=== PATIENT | male | born 1955 | race Caucasian/White ===

== ENCOUNTER 2024-10-18 07:27 | Emergency (ER) | payer MEDICARE, SELFPAY ==
[2024-10-18 07:37] VITALS: BP 182/111; PULSE 77; RESP 19; TEMP 36.4; O2SAT 99; BMI 25.7
--- OUTSIDE RECORDS SUMMARY | 2024-10-18 07:40 | XMS_ITS | Clinical Summary ---
Author Organization [facility] Address [address] [place] [address] Care Team Providers Care Information Technology Teacher Name Role Phone Adam Owens MD Primary Care Provider Allergies No known active allergies Medications atorvastatin (LIPITOR) 20 mg tablet TAKE 1 TABLET BY MOUTH ONCE DAILY LATE IN THE DAY 90 Tablet 3 09/30/2019 Active tamsulosin (FLOMAX) 0.4 mg capsule Take 1 capsule by mouth once daily 90 Capsule 3 09/30/2019 Active finasteride (PROSCAR) 5 mg tablet TAKE 1 TABLET BY MOUTH ONCE DAILY 04/21/2020 Active Active Problems Problem Noted Date Diagnosed Date Tobacco abuse 10/10/2016 BPH (benign prostatic hyperplasia) 10/10/2016 Erectile dysfunction 10/10/2016 Adenomatous polyp of colon 10/10/2016 Overview (04/05/2019): 2018---repeat 5 year. Dyslipidemia 10/20/2015 Elevated PSA 02/13/2014 Overview (11/08/2019): MRI at [facility] 10/30/2019 showing no high-grade prostate cancer. Severe benign prostatic hypertrophy. Asymmetric hypodensity in the peripheral zone. Focal PI RADS 3 lesion within the right transitional zone. Overall a grade 3/5- intermediate risk prostate cancer. Scanned. Hematochezia 09/30/2009 Resolved Problems Problem Noted Date Diagnosed Date Resolved Date Appendicitis, unqualified 10/15/2012 Immunizations Immunization Administration Dates Next Due (ADACEL/BOOSTRIX)(10 YR UP) TDAP VACCINE, 0.5ML, IM 02/14/2017 (PNEUMOVAX 23)(50 YRS UP) PN EUMOCOCCAL POLYSACCHARIDE (PPV23) 0.5 ML, IM 05/01/2020,10/08/2015 INFLUENZA VACCINE QUADRIVALENT 3 YR UP PF IM Family History Medical History Relation Name Comments Aneurysm Brother 1 Kaushal age 45/ Hypertension Father Hypertension Mother Relation Name Status Comments Brother 1 Kaushal (Age 45) brain aneu rysm Brother 2 Garcia Alive Brother 3 Lawrence Alive Father (Age 93) Mother Alive Social History Tobacco Use Types Packs/Day Years Used Date Smoking Tobacco: Former Cigarettes 1 14 S tarted: 06/30/2015 Smokeless Tobacco: Current Chew Tobacco Cessation:Ready to Q uit: Yes; Counseling Given: Yes Comments:(72 ) started at age 40 Alcohol Use Standard Drinks/Week Comments Yes 11.7 (1 standard drink = 0.6 oz pure alcohol) Sex and Gender Information Value Date Recorded Sex Assigned at Not on file Legal Sex Male 11:08 AM [employer] Gender Identity Not on file Sexual Orientation Not on file Last Filed Vital Signs Vital Sign Reading Time Taken Comments Blood Pressure 126/72 05/01/2020 11:01 AM [employer] Pulse 107 05/01/2020 11:01 AM [employer] Temperature 36.2 C (97.2 F) 05/01/2020 11:01 AM [employer] Respiratory Rate 18 04/08/2019 9:41 AM [employer] Oxygen Saturation 96% 05/01/2020 11:01 AM [employer] Inhaled Oxygen Concentration - - Weight 85.3 kg (188 lb) 05/01/2020 11:01 AM [employer] Height 185.4 cm (6' 1 ) 05/01/2020 11:01 AM [employer] Body Mass Index 24.8 05/01/2020 11:01 AM [employer] Plan of Treatment Health Maintenance Due Date Last Done Comments Pre-Diabetes and Diabetes Screening 1955 Traditional Medicare (ACO) A nnual Wellness Visit 1974 FIT-DNA Q 3 years 01/05/2000 FIT/FOBT Q 1 year 01/05/2000 Flex Sig/CT Colonography Q 5 years 01/05/2000 ZOSTER VACCINE (1 of 2) 2005 PNEUMOCOCCAL VACCINE 50+ YEA RS (2 of 2 - PCV) 05/01/2021 05/01/2020, 10/08/2015 COLORECTAL SCREENING 05/29/2023 05/28/2018, 05/28/2018, 10/01/2009, Additional history exists Colorectal Cancer Screening 05/29/2023 INFLUENZA VACCINE (#1) 2024 , 04/08/2019, 04/05/2018, Additional history exists DTAP/TDAP/TD VACCINES (2 - T d or Tdap) 02/14/2027 02/14/2017 RSV VACCINE (60+ or ) (1 - 1-dose 75+ series) 2030 Procedures Procedure Name Priority Date/Time Associated Diagnosis Comments COLONOSCOPY REPORT 05/28/2018 3: 26 PM CDT from Last 3 Months or Most Recently Relevant to Health Maintenance Results * COLONOSCOPY REPORT (05/28/2018 3:26 PM CDT) Narrative Procedure Note Kishor Saldana MD - 05/28/2018 3:[address] [facility] [place] [facility] Patient Name: Maryann Wheeler Procedure Date: 05/28/2018 Date of : 1955 Admit Type: Outpatient Age: 63 Attending MD: Kishor Saldana , Procedure: Colonoscopy Indications: Screening for colorectal malignant neoplasm (last colonoscopy was 10 years ago) Providers: Kishor Saldana Referring MD: Adam Owens MD Medicines: Midazolam 5 mg IV, Fentanyl 100 micrograms IV Complications: No immediate complications. Procedure: Pre-Anesthesia Assessment: - The risks and benefits of the procedure and the sedation options and risks were discussed with the patient. All questions were answered and informed consent was obtained. - ASA Grade Assessment: I - A normal, healthy patient. After I obtained informed consent, the scope was passed under direct vision. Throughout the procedure, the patient's blood pressure, pulse, and oxygen saturations were monitored continuously. The Colonoscope was introduced through the anus and advanced to the cecum, identified by appendiceal orifice and ileocecal valve. The colonoscopy was performed without difficulty. The patient tolerated the procedure well. The quality of the bowel preparation was adequate. Estimated Blood Loss: Estimated blood loss was minimal. Findings: The perianal and digital rectal examinations were normal. A 4 mm polyp was found in the proximal ascending colon. The polyp was flat. The polyp was removed with a cold snare. Resection and retrieval were complete. A few diverticula were found in the sigmoid colon. The exam was otherwise without abnormality on direct and retroflexion views. Impression: - One 4 mm polyp in the proximal ascending colon, removed with a cold snare. Resected and retrieved. - Diverticulosis in the sigmoid colon. - The examination was otherwise normal on direct and retroflexion views. Recommendation: - Repeat colonoscopy for surveillance based on pathology results. Kishor Saldana, 05/28/2018 3:25:52 PM Number of Addenda: 0 Note Initiated On: 05/28/2018 3:00 PM Scope Withdrawal Time 0 hours 6 minutes 31 seconds Scope In: 3:11:52 PM Scope Out: 3:21:02 PM [address] [place], [place] Kishor Saldana MD GI PROCEDURE ORDERABLES Final Result from Last 3 Months or Most Recently Relevant to Health Maintenance Insurance MEDICARE PART A HOSPITAL ONLY Advance Directives For more information, please contact: [phone] * Full Code (Latest Code Status on File) Date Activated Date Inactivated Comments 05/28/2018 2:44 PM 05/28/2018 5:52 PM * Full Code Date Activated Date Inactivated Comments 10/07/2012 6:30 PM 10/08/2012 1:44 PM * Full Code Date Activated Date Inactivated Comments 10/07/2012 5:10 PM 10/07/2012 6:30 PM * Full Code Date Activated Date Inactivated Comments 09/30/2009 1:57 PM 09/30/2009 4:33 PM * Full Code Date Activated Date Inactivated Comments 09/30/2009 1:05 PM 09/30/2009 1:57 PM Care Teams Information Technology Teacher Relationship Specialty Start Date End Date Adam Owens MD [address] [facility] [address] [place] [id number] PCP - General Family Practice 09/24/09
--- OUTSIDE RECORDS SUMMARY | 2024-10-18 07:40 | XMS_ITS | Clinical Summary ---
Author Organization [facility] Address [address] Beth: Epic Prelude ADT [place] [address] Care Team Providers Care Tree Marker Name Role Phone Adam Owens MD Primary Care Provider [phone] Allergies No known active allergies Medications tamsulosin (FLOMAX) 0.4 mg capsuleIndicatio ns:Benign localized prostatic hyperplasia with lower urinary tract symptoms (LUTS) Take 2 Capsules (0.8 mg) by mouth daily. 60 Capsule 5 Active atorvastatin (LIPITOR) 20 mg tablet Take 1 Tablet (20 mg) by mouth daily with supper. 90 Tablet 3 5 Active lisinopriL (PRINIVIL) 20 mg tablet Take 1 Tablet (20 mg) by mouth daily. 30 Tablet 1 5 Active Active Problems Problem Noted Date Diagnosed Date Pulmonary emphysema 09/03/2024 Tobacco abuse 10/10/2016 Erectile dysfunction 10/10/2016 BPH (benign prostatic hyperplasia) 10/10/2016 Adenomatous polyp of colon 10/10/2016 Overview (06/25/2020): 2018---repeat 5 year. Dyslipidemia 10/20/2015 Elevated PSA 02/13/2014 Overview (06/25/2020): MRI at [facility] 10/30/2019 showing no high-grade prostate cancer. Severe benign prostatic hypertrophy. Asymmetric hypodensity in the peripheral zone. Focal PI RADS 3 lesion within the right transitional zone. Overall a grade 3/5 i ntermediate risk prostate cancer. Scanned. Hematochezia 09/30/2009 Resolved Problems Problem Noted Date Diagnosed Date Resolved Date Appendicitis, unqualified 10/15/2012 Encounters Date Type Department Care Team Description 10/04/2024 10:00 AM CDT Office Visit [facility] [place] [place] [place] [phone] Adam Owens MD Essential hypertension (Primary Dx) 10/04/2024 Orders Only [facility] [place] [place] [phone] Zainab, Candi Woo [facility] Essential hypertension 10/01/2024 External Device Data STL ABSTRACTION Provider, Abstract 09/11/2024 External Device Data STL ABSTRACTION Provider, Abstract 09/11/2024 External Device Data STL ABSTRACTION Provider, Abstract 09/11/2024 External Device Data STL ABSTRACTION Provider, Abstract 09/11/2024 External Device Data STL ABSTRACTION Provider, Abstract 09/04/2024 Results Follow-Up [facility] [place] [address] [place] [address] Adam Owens MD CBC WITH DIFFERENTIAL, BASIC METABOLIC PANEL, LIPID PANEL, TSH 09/03/2024 1:30 PM CDT Office Visit [facility] [place] [place] [address] Adam Owens MD Encounter for well adult exam with abnormal findings (Primary Dx); Dyslipidemia; Ankle swelling, unspecified laterality; Screening for colon cancer; Elevated blood pressure reading without diagnosis of hypertension; Pulmonary emphysema, unspecified emphysema type (CMS/HCC) 09/02/2024 Telephone [facility] [place] [place] [phone] Adam Owesn MD Previsit Planning 08/20/2024 Telephone [facility] [place] [facility] [address] [place] [address] Adam Owens MD Left message about appt for 08/2108/09/2024 7:20 AM CDT - 08/09/2024 11:59 PM CDT Hospital Encounter [facility] [address] [place] [id number] Adam Owens MD Discharge Disposition: Home or Self Care 08/09/2024 Results Follow-Up [facility] [place] [address] [place] [address] LUNG SCREENING (LDCT BASELINE OR ANNUAL) from Last 3 Months Immunizations Immunization Administration Dates Next Due (ADACEL/BOOSTRIX)(10 YR UP) TDAP VACCINE, 0.5ML, IM 02/14/2017 (PFIZER)(12 YR UP) COVID-19 VACCINE - EMERGENCY USE AUTHORIZATION, MRNA, [id number](PF) 30 MCG/0.3 ML IM SUSP 09/25/2020,09/05/2020 (PNEUMOVAX 23)(50 YRS UP) PN EUMOCOCCAL POLYSACCHARIDE (PPV23) 0.5 ML, IM 05/01/2020,10/08/2015 (PREVNAR 20)(6 WKS UP) PNEUM OCOCCAL CONJUGATE VACCINE 20-VALENT (PCV20), POLYSACCHARIDE [id number] CONJUGATE, ADJUVANT 0.5 ML (PF) IM 05/17/2022 INFLUENZA VACCINE QUADRIVALENT 3 YR UP PF IM Family History Medical History Relation Name Comments Aneurysm Brother 1 Kaushal age 45/ Hypertension Father Hypertension Mother Relation Name Status Comments Brother 1 Kaushal (Age 45) brain aneu rysm Brother 2 Lawrence Alive Brother 3 Garcia Alive Father (Age 93) Mother Alive Social History Tobacco Use Types Packs/Day Years Used Date Smoking Tobacco: Former Cigarettes 1 9.3 S tarted: 06/30/2015 Smokeless Tobacco: Current Chew Comments:Uses nicotine pouch es Alcohol Use Standard Drinks/Week Comments Not Currently 0 (1 standard drink = 0.6 oz pur e alcohol) occasionally Financial Resource Strain Answer Date R ecorded How hard is it for you to pa y for the very basics like food, housing, medical care, and heating? Not hard at all 04/22/2022 Food Insecurity Answer Date Recorded In the past 12 months, have you worried that your food would run out before you had money to buy more? Never true 04/22/2022 In the past 12 months, did y ou run out of food and didn't have money to buy more? Never true 04/22/2022 Transportation Needs Answer Date Record ed In the past 12 months, has l ack of transportation kept you from medical appointments or from getting medications? No 04/22/2022 Lack of Transportation (Non-Medical) Not on file 04/22/2022 Sex and Gender Information Value Date Recorded Sex Assigned at Not on file Legal Sex Male 11:16 AM PARTS COUNTER REPRESENTATIVE Gender Identity Not on file Sexual Orientation Not on file Last Filed Vital Signs Vital Sign Reading Time Taken Comments Blood Pressure 162/92 10/04/2024 10:02 AM CDT Pulse 97 10/04/2024 9:39 AM CDT Temperature 36.7 C (98.1 F) 10/04/2024 9:39 AM CDT Respiratory Rate 18 09/03/2024 1:31 PM CDT Oxygen Saturation 95% 10/04/2024 9:39 AM CDT Inhaled Oxygen Concentration - - Weight 88 kg (194 lb) 10/04/2024 9:39 AM CDT Height 185.4 cm (6' 1 ) 10/04/2024 9:39 AM CDT Body Mass Index 25.6 10/04/2024 9:39 AM CDT Plan of Treatment Upcoming Encounters Date Type Department Care Team (Late st Contact Info) Description 11/04/2024 2:00 PM CDT Office Visit [facility] [place] [address] [place] [address] Adam Owens MD [address] [place] [address] 09/04/2025 10:30 AM CDT Office Visit [facility] [place] [address] [place] [address] Adam Owens MD [address] [place] [phone] Health Maintenance Due Date Last Done Comments Pre-Diabetes and Diabetes Screening 1955 FIT-DNA Q 3 years 01/05/2000 FIT/FOBT Q 1 year 01/05/2000 Flex Sig/CT Colonography Q 5 years 01/05/2000 ZOSTER VACCINE (1 of 2) 2005 RSV VACCINE (60+ or ) (1 - Risk 60-74 years 1-dose series) 2015 COLORECTAL SCREENING 05/29/2023 05/28/2018, 05/28/2018, 05/28/2018, Additional history exists Colorectal Cancer Screening 05/29/2023 COVID-19 Vaccine (3 - 2023-2 5 season) 2023 09/25/2020, 09/05/2020 INFLUENZA VACCINE (#1) 2024 , 05/17/2022, 05/04/2021, Additional history exists DTAP/TDAP/TD VACCINES (2 - T d or Tdap) 02/14/2027 02/14/2017 PNEUMOCOCCAL VACCINE 50+ YEARS Completed 0 05/17/2022, 05/01/2020, 10/08/2015 Abdominal Aortic Aneurysm (A AA) Screening Completed 03/11/2024 [place]) Preventative Visit/Annual Wellness Visit Completed 09/03/2024, 05/26/2023, 05/26/2023, Additional history exists Goals Goal Patient Goal Type Associated Problems Recent Progress Patient-Stated? Author HYPERTENSIO N CARE PLAN GOAL Care Plan IVETT MYC HYPERTENSION CARE PLAN PROBLEM No Maryann Wasserman Procedures Procedure Name Priority Date/Time Associated Diagnosis Comments EKG 12-LEAD Stat 10/04/2024 Essential hypertension TSH Routine 09/03/2024 2:34 PM CDT Elevated blood pressure reading without diagnosis of hypertension LIPID PANEL Routine 09/03/2024 2:32 PM CDT Dyslipidemia BASIC METABOLIC PANEL Routine 09/03/2024 2:32 PM CDT Ankle swelling, unspecified laterality CBC WITH DIFFERENTIAL Routine 09/03/2024 2:32 PM CDT Ankle swelling, unspecified laterality CT LUNG SCREENING (LDCT BASELINE OR ANNUAL) Routine 08/09/2024 7:38 AM CDT Tobacco abuse Personal history of nicotine dependence US AAA SCREEN Routine 03/11/2024 2:09 PM PARTS COUNTER REPRESENTATIVE Screening for AAA (abdominal aortic aneurysm) COLONOSCOPY REPORT Routine 05/28/2018 3: 25 PM CDT from Last 3 Months or Most Recently Relevant to Health Maintenance Results * EKG 12-LEAD (10/04/2024) Adam Owens MD ECG ORDERABLES Final Result Performing Organization Address City/[facility]/ZIP Co de Phone Number [facility] [address] CLIA# [id number] [address] [place] [address] * TSH (09/03/2024 2:34 PM CDT) TSH 1.67 0.40 - 4.50 mIU/L [facility] Comment: Test Performed at: [facility] [address] [place] [phone] Suzan Branham MD Blood 09/03/2024 2:34 PM CDT 09/03/2024 2:34 PM CDT Adam Owens MD CHEMISTRY ORDERABLES Final Res ult Performing Organization Address City/[facility]/ZIP Co de Phone Number [facility] [phone] [facility] [address] [place] [address] * CBC WITH DIFFERENTIAL (09/03/2024 2:32 PM CDT) WBC 6.7 3.8 - 10.8 Thousand/u L [facility] R[facility] RBC 5.00 4.20 - 5.80 Million/uL [facility] HEMOGLOBIN 15.5 13.2 - 17.1 g/dL [facility] HEMATOCRIT 48.1 38.5 - 50.0 % [facility] MCV 96.2 80.0 - 100.0 fL [facility] MCH 31.0 27.0 - 33.0 pg [facility] MCHC 32.2 32.0 - 36.0 g/dL [facility] Comment: For adults, a slight decrease in the calculated MCHC value (in the range of 30 to 32 g/dL) is most likely not clinically significant; however, it should be interpreted with caution in correlation with other red cell parameters and the patient's clinical condition. RDW 12.9 11.0 - 15.0 % [facility] PLATELETS 179 140 - 400 Thousand/u L [facility] MPV 11.0 7.5 - 12.5 fL [facility] NEUTROPHIL ABSOLUTE 4,402 1,500 - 7,800 cells/uL [facility] LYMPHOCYTE ABSOLUTE 1,260 850 - 3,900 cells/uL [facility] MONOCYTE ABSOLUTE 905 200 - 950 cells/uL [facility] RRL EOSINOPHIL ABSOLUTE 80 15 - 500 cells/uL [facility] BASOPHILS ABSOLUTE 54 0 - 200 cells/uL [facility] NEUTROPHIL 65.7 % [facility] LYMPHOCYTES 18.8 % [facility] MONOCYTE 13.5 % [facility] EOSINOPHILS 1.2 % [facility] BASOPHILS 0.8 % [facility] Comment: FASTING:YES FASTING: YES Test Performed at: [facility] [address] [place] [address] Suraj Nayak Blood 09/03/2024 2:32 PM CDT 09/03/2024 2:33 PM CDT us Adam Owens MD HEMATOLOGY ORDERABLES Final Re sult [facility] [phone] [facility] RR [address] [place] [address] * LIPID PANEL (09/03/2024 2:32 PM CDT) CHOLESTEROL 165 <200 mg/dL [facility] HDL 70 > OR = 40 mg/dL [facility] TRIGLYCERIDE 136 <150 mg/dL [facility] LDL CALCULATED 73 mg/dL (calc) [facility] Comment: Reference range: <100 Desirable range <100 mg/dL for primary prevention; <70 mg/dL for patients with CHD or diabetic patients with > or = 2 CHD risk factors. LDL-C is now calculated using the Chris calculation, which is a validated novel method providing better accuracy than the Friedewald equation in the estimation of LDL-C. Omid SS et al. MARILYN. 2013;310(19): 2990-9319 (http://education.[employer]/faq/TUS943) CHOL/HDL RATIO 2.4 <5.0 (calc) [facility] NON-HDL CHOLESTEROL 95 <130 mg/dL (calc) [facility] Comment: For patients with diabetes plus 1 major ASCVD risk factor, treating to a non-HDL-C goal of <100 mg/dL (LDL-C of <70 mg/dL) is considered a therapeutic option. Test Performed at: [facility] [address] [place] [address] Suraj Nayak Blood 09/03/2024 2:32 PM CDT 09/03/2024 2:33 PM CDT us Adam Owens MD CHEMISTRY ORDERABLES Final Res ult [facility] [phone] [facility] [address] [place] [address] * BASIC METABOLIC PANEL (09/03/2024 2:32 PM CDT) GLUCOSE 82 65 - 99 mg/dL [facility] RR Comment: Fasting reference interval BUN 15 7 - 25 mg/dL [facility] RRL CREATININE 0.83 0.70 - 1.35 mg/dL [facility] GFR 95 > OR = 60 mL/min/1.7 3m2 [facility] RRL BUN/CREAT RATIO SEE NOTE: 6 - 22 (calc) [facility] RRL Comment: Not Reported: BUN and Creatinine are within reference range. SODIUM 139 135 - 146 mmol/L [facility] RRL POTASSIUM 4.5 3.5 - 5.3 mmol/L [facility] RRL CHLORIDE 104 98 - 110 mmol/L [facility] RRL CO2 30 20 - 32 mmol/L [facility] RRL CALCIUM 9.5 8.6 - 10.3 mg/dL [facility] RRL Comment: FASTING:YES FASTING: YES Test Performed at: [facility] RR [address] [place] [address] Suraj Nayak Blood 09/03/2024 2:32 PM CDT 09/03/2024 2:33 PM CDT us Adam Owens MD CHEMISTRY ORDERABLES Final Res ult [facility] [phone] [facility] [address] [place] [address] * CT LUNG SCREENING (LDCT BASELINE OR ANNUAL) (08/09/2024 7:38 AM CDT) Anatomical Region Laterality Modality Chest Computed Tomogra phy 08/09/2024 7:31 AM CDT Impressions 08/09/2024 12:14 PM CDT IMPRESSION: Lung-RADS 1: NEGATIVE. No nodules or definitely benign nodules. Continue annual screening with LDCT in 12 months. Narrative 08/09/2024 12:14 PM CDT Exam: CT LUNG SCREENING (LDCT BASELINE OR ANNUAL) Date/Time of Exam: 08/09/2024 7:38 AM Reason For Exam: Lung cancer screening, >= 20 pk-yr smoking history (Age >= 50y). Diagnosis: Tobacco abuse; Personal history of nicotine dependence. Technique: Low-dose CT of the chest was performed without the use of contrast. Please note that detailed evaluation of the extrapulmonary structures is limited to some degree by the low-dose technique, and the lack of intravenous contrast. Comparison: 05/22/2023. FINDINGS: Lungs and pleural: No acute airspace disease. No pleural effusions. Lung Nodules: No suspicious pulmonary nodules/masses. Mediastinum: Within the limitations of a noncontrast low-dose CT, no pathologically enlarged axillary, mediastinal or hilar lymph nodes are identified. Small hiatal hernia. Heart: The heart is normal in size. There is no pericardial effusion. Minimal coronary artery calcification. Upper Abdomen: Limited assessment. No acute findings. Unchanged cysts anteriorly in the left hepatic lobe. Bones: No aggressive/suspicious appearing bone lesions identified. Adam Owens MD CT ORDERABLES Final Result * US AAA SCREEN (03/11/2024 2:09 PM PARTS COUNTER REPRESENTATIVE) Anatomical Region Laterality Modality Abdomen Ultrasound 03/11/2024 2:09 PM PARTS COUNTER REPRESENTATIVE Impressions 03/11/2024 3:23 PM PARTS COUNTER REPRESENTATIVE IMPRESSION: Please see below. US AAA SCREEN, 03/11/2024 2:09 PM . Reason For Exam: See Diagnosis. Diagnosis: Screening for AAA (abdominal aortic aneurysm). COMPARISON: None . TECHNIQUE: Real-time multiplanar ultrasonography of the aorta using valle-scale imaging, supplemented by color and spectral Doppler. . LIMITATIONS: Study designed for aorta and vessels. Remainder of abdomen and retroperitoneum incompletely imaged. . FINDINGS: . Aortic diameter: Proximal: 2.2 x 2.1 cm Mid: 2.3 x 2.4 cm Distal: 2.0 x 2.0 cm . . Additional comments: Atherosclerotic calcifications are present. . ++++++++++++++++++++ IMPRESSION: Negative for abdominal aortic aneurysm. Narrative Procedure Note Atul Fong MD - 03/11/2024 IMPRESSION: Please see below. US AAA SCREEN, 03/11/2024 2:09 PM . Reason For Exam: See Diagnosis. Diagnosis: Screening for AAA (abdominal aortic aneurysm). COMPARISON: None . TECHNIQUE: Real-time multiplanar ultrasonography of the aorta using valle-scale imaging, supplemented by color and spectral Doppler. . LIMITATIONS: Study designed for aorta and vessels. Remainder of abdomen and retroperitoneum incompletely imaged. . FINDINGS: . Aortic diameter: Proximal: 2.2 x 2.1 cm Mid: 2.3 x 2.4 cm Distal: 2.0 x 2.0 cm . . Additional comments: Atherosclerotic calcifications are present. . ++++++++++++++++++++ IMPRESSION: Negative for abdominal aortic aneurysm. Adam Owens MD US ORDERABLES Final Result * COLONOSCOPY REPORT (05/28/2018 3:25 PM CDT) 05/28/2018 3:25 PM CDT Kishor Saldana MD GI PROCEDURE ORDERABLES Final Result [facility] from Last 3 Months or Most Recently Relevant to Health Maintenance Additional Health Concerns Active Problems Noted Date Diagnosed Date IVETT MYC HYPERTENSION CARE PLAN PROBLEM 5 [address] [place] [address] [facility] [id number] [place] [id number] RX [employer] RX Member Subscriber Plan / Payer (Ef fective 2021-Present) Name:Mayrann Wheeler Alan Relation to Subscriber:Self Name:Maryann Wheeler Alan Payer ID:Not on file Group ID:[id number] Type:RX Medicare Part D Address: [address] [place] [address] Care Teams Tree Marker Relationship Specialty Start Date End Date Adam Owens MD [address] [place] [address] PCP - General Family Practice 09/24/09
[2024-10-18 07:50] LABS: Hematocrit 49.0 % (37-53); Hemoglobin 16.10 g/dL (11.27-16.99); Mean Corpuscular HGB Conc 32.9 g/dL (30-55); Mean Corpuscular Hemoglobin 30.9 pg (27-33); Mean Corpuscular Volume 94.0 fl (82-101); Nucleated Red Blood Cells % 0 %; Platelet Count 191 10^3/cmm (157-399); Red Blood Count 5.21 10^6/uL (3.85-5.65); White Blood Count 6.80 10^3/uL (3.29-11.43)
[2024-10-18 08:07] LABS: Anion Gap 14.6 (5-19); Blood Urea Nitrogen 13 mg/dL (8-23); Calcium 8.3 mg/dL (8.5-10.5); Carbon Dioxide 23 mmol/L (22-29); Chloride 106 mmol/L (98-107); Creatinine Clr Calc Pharmacy 99.8847; Glucose 119 mg/dL (65-115); Osmolality Calculated 289 mOsm/kg (285-295); Potassium 4.6 mmol/L (3.5-5.1); Sodium 139 mmol/L (136-145)
--- NOTE | 2024-10-18 08:15 | ED_ITS ---
HPI - Male Genitourinary 2 General: Chief complaint: Urogenital-Male Stated complaint: Can't pee Time Seen by Provider: 10/18/24 07:30 History of Present Illness: 69-year-old male presents emergency room is unable to urinate he is having a little bit of urination on occasion feels like he cannot ever get his bladder completely empties very uncomfortable. He is had problems with urinary retention in the past. No flank pain no hematuria. No fever sweats or chills. Associated symptoms: Deny hematuria Related Data Previous Rx's ?Medication ?Instructions ?Recorded tamsulosin 0.4 mg capsule 0.4 mg PO BID #60 caps 10/18 Allergies Allergy/AdvReac Type Severity Reaction Status Date / Time No Known Allergies Allergy Verified 10/18/24 07:44 Review of Systems 2 Const: Denies: fever(s) or chills Card: Denies: chest pain Resp: Denies: dyspnea GI: Denies: abdominal pain : Reports: urinary frequency, difficulty starting urination and oliguria; Denies: hematuria Musc: Denies: neck pain or back pain Skin/Breast: Denies: rash Physical Exam 2 Const: GENERAL APPEARANCE: cooperative ORIENTATION/CONSCIOUSNESS: Yes awake, Yes oriented to person, Yes oriented to place and Yes oriented to time HENMT: COMMON NORMALS: normocephalic, atraumatic and hearing grossly normal bilaterally HEAD & SCALP: normocephalic and atraumatic Resp: COMMON NORMALS: normal respiratory effort, No retractions, No use of accessory muscles and clear to auscultation bilaterally AUSCULTATION: clear to auscultation bilaterally Cardio: COMMON NORMALS: regular rate, regular rhythm and No murmurs present (Cardio) RATE: regular rate RHYTHM: regular rhythm GI: COMMON NORMALS: Soft to palpation and No hepatosplenomegaly present A USCULTATION: Yes normoactive bowel sounds PALPATION: Yes Soft to palpation, No Tenderness to palpation present (GI), No Guarding due to palpation present (GI) and Yes No hepatosplenomegaly present Extremity: COMMON NORMALS: normal to inspection, capillary refill normal, no clubbing, cyanosis or edema, no calf tenderness and no pedal edema Neuro: SENSORIUM/ORIENTATION: Yes oriented to person, Yes oriented to place and Yes oriented to time Skin: COMMON NORMALS: no rashes or lesions noted GENERAL SKIN EXAM: no rashes or lesions noted Course 2 Vital Signs: Vital signs: Vital Signs Temperature 97.6 F 10/18/24 07:37 Pulse Rate 77 10/18/24 07:37 Respiratory Rate 19 H 10/18/24 07:37 Blood Pressure 182/111 10/18/24 07:37 Pulse Oximetry 99 10/18/24 07:37 Oxygen Delivery Me thod Room Air 10/18/24 07:37 MDM - Male Medical Decision Making Patient over 800 out on placement of Chong. We changed her to a leg bag. Patient has been on Flomax in the past but has not been taking the last several days encouraged him to restart it. Recommend that he go home with a leg bag next week he can reevaluate talk to his primary care doctor or urologist. He should get the Chong out early to mid next week. Start immediately on the Flomax twice a day. Reviewed the other labs. Medical Records I reviewed the patient's medical records. Lab Data I reviewed the patient's lab results. 10/18/24 07:45 10/18/24 07:45 Laboratory Results WBC 6.80 10^3/uL (3.29-11.43) 10/18/24 07:45 RBC 5.21 10^6/uL (3.85-5.65) 10/18/24 07:45 Hgb 16.10 g/dL (11.27-16.99) 10/18/24 07:45 Hct 49.0 % (37-53) 10/18/24 07:45 MCV 94.0 fl (82-101) 10/18/24 07:45 MCH 30.9 pg (27-33) 10/18/24 07:45 MCHC 32.9 g/dL (30-55) 10/18/24 07:45 RDW 12.7 % (12.1-15.1) 10/18/24 07:45 Plt Count 191 10^3/cmm (157-399) 10/18/24 07:45 MPV 10.6 fL (7.4-10.4) H 10/18/24 07:45 Neut % (Auto) 74.1 % 10/18/24 07:45 Lymph % (Auto) 11.6 % 10/18/24 07:45 [place] % (Auto) 12.8 % 10/18/24 07:45 Eos % (Auto) 0.7 % 10/18/24 07:45 Baso % (Auto) 0.4 % 10/18/24 07:45 Neut # (Auto) 5.03 10^3/uL (1.8-7.7) 10/18/24 07:45 Lymph # (Auto) 0.8 10^3/uL (0.8-4.8) 10/18/24 07:45 [place] # (Auto) 0.9 10^3/uL (0.2-0.9) 10/18/24 07:45 Eos # (Auto) 0.1 10^3/uL (0.0-0.8) 10/18/24 07:45 Baso # (Auto) 0.0 10^3/uL (0.0-0.1) 10/18/24 07:45 Nucleated RBC % (auto) 0 % 10/18/24 07:45 Nucleated RBCs # 0.0 /100WBC 10/18/24 07:45 Sodium 139 mmol/L (136-145) 10/18/24 07:45 Potassium 4.6 mmol/L (3.5-5.1) 10/18/24 07:45 Chloride 106 mmol/L (98-107) 10/18/24 07:45 Carbon Dioxide 23 mmol/L (22-29) 10/18/24 07:45 Anion Gap 14.6 (5-19) 10/18/24 07:45 BUN 13 mg/dL (8-23) 10/18/24 07:45 Creatinine 0.8 mg/dL (0.7-1.2) 10/18/24 07:45 GFR Calculation 95.8 mL/min (90-130) 10/18/24 07:45 Glucose 119 mg/dL (65-115) H 10/18/24 07:45 Calculated Osmolality 289 mOsm/kg (285-295) 10/18/24 07:45 Calcium 8.3 mg/dL (8.5-10.5) L 10/18/24 07:45 Urine Color Yellow (Yellow) 10/18/24 08:12 Urine Appearance Cloudy (CLEAR) A 10/18/24 08:12 Urine pH 5.5 (5-7) 10/18/24 08:12 Ur Specific [place] 1.010 (1.005-1.030) 10/18/24 08:12 Urine Protein Negative (Negative) 10/18/24 08:12 Urine Glucose (UA) Negative (Normal) 10/18/24 08:12 Urine Ketones Negative (Negative) 10/18/24 08:12 Urine Blood Negative (Negative) 10/18/24 08:12 Urine Nitrate Negative (Negative) 10/18/24 08:12 Urine Bilirubin Negative (Negative) 10/18/24 08:12 Urine Urobilinogen 0.2 mg/dL (Negative) 10/18/24 08:12 Ur Leukocyte Esterase Negative (Negative) 10/18/24 08:12 Urine RBC 0-2 /hpf (0-2) 10/18/24 08:12 Urine WBC 0-5 /hpf (0-5) 10/18/24 08:12 Ur Squamous Epith Cells 0-5 /hpf (0-5) 10/18/24 08:12 Amorphous Sediment Not Reportable 10/18/24 08:12 Urine Bacteria None seen /hpf (NONE) 10/18/24 08:12 Hyaline Casts 0.81 /lpf 10/18/24 08:12 No radiology studies performed this visit Discharge Plan Discharge Patient Disposition: Home Clinical Impression: Acute retention of urine, BPH w urinary obs/LUTS Condition: Stable Prescriptions: New tamsulosin 0.4 mg capsule 0.4 mg PO BID Qty: 60 0RF Discharge Orders: Discharge ED (Routine); Ordered 10/18/24 Ordered By: Arun Guevara Referrals: Bala Santiago DO [Physician, Family Practice] Marilyn Mendoza DO [Physician, Family Practice] Ernestina Avendano MD [Physician, Family Practice] Tony Vega MD [Physician, Family Practice] Steve Carr MD [Physician, Family Practice] Discharge Diet: Usual diet Discharge Activity: Resume usual activity Patient Instructions: Urinary Retention in Men (ED), Opioid Safety, Pain Management, Patient Portal & Param Instructions, Benign Prostatic Hypertrophy (BPH) Activity Restrictions/Additional Instructions: Thank you for choosing [facility] for your healthcare needs today. It is very important that you follow up as instructed or that you return to the Emergency Department should you have concerns or if your condition changes or worsens in any way. Recommend to follow-up with your urologist regarding your prostate issues. The Chong should be removed within the next week. Under the referral section in this discharge paperwork we listed several names you can call to establish for his primary care physician. Print Language: Greenlandic Coding Level of Care Code ED Flanging Roll Operator for Estrellita Gonzales
[2024-10-18 08:31] LABS: Glucose Urine UA Negative (Normal); Nitrate Urine Negative (Negative); Specific Gravity, Urine 1.010 (1.005-1.030)
[2024-10-18 08:36] LABS: Add Urine Microscopic? YES
== END 2024-10-18 09:14 | disposition home or self-care (01) ==
PROVIDERS: Emergency Provider Family Medicine
DX: R33.8 Other retention of urine (principal); N40.1 Benign prostatic hyperplasia with lower urinary tract symptoms
CPT/HCPCS: 36415; 51702; 80048; 81001; 85025; 99283